=== PATIENT | female | born 1955 | race Two or more races ===

== ENCOUNTER 2018-01-25 11:36 | Outpatient (CLI) | payer OTHER ==
[~2018-01-25 11:36] MED LIST: ADALAT CC30 MG; ATORVASTATIN CA10 MG PO; BONINE25 MG PO; CEFADROXIL500 MG PO; GLIMEPIRIDE4 MG PO; HYZAAR 100-121 UDTAB; LEVO-T125 MCG PO; LOSARTAN-HCTZ1 EAC1 PO; NABUMETONE500 MG PO; NIFE60TA3 PO; PERCOCET 5-3251 EACH PO; PERCOCET 5/3251 TAB PO; TEMAZEPAM30 MG PO; XARELTO10 MG PO
== END 2018-01-25 14:49 | disposition home or self-care (01) ==
LOC: MAMO-SONO 11:36
DX: Z12.31 Encounter for screening mammogram for malignant neoplasm of breast (principal); Z87.898 Personal history of other specified conditions; N62 Hypertrophy of breast; E03.8 Other specified hypothyroidism; E04.1 Nontoxic single thyroid nodule

== ENCOUNTER 2018-04-04 07:56 | Outpatient (CLI) | payer OTHER | END 2018-04-04 08:03 | disposition home or self-care (01) | LOC: SONOGRAMA 07:56 → MAMO-SONO 08:15 | DX: K76.0 Fatty (change of) liver, not elsewhere classified (principal) ==

== ENCOUNTER 2019-01-16 10:58 | Outpatient (CLI) | payer OTHER | END 2019-01-16 11:08 | disposition home or self-care (01) | LOC: RAD 10:58 → MAMO-SONO 11:15 | DX: E04.2 Nontoxic multinodular goiter (principal); M50.33 Other cervical disc degeneration, cervicothoracic region ==

== ENCOUNTER 2019-01-25 13:35 | Outpatient (CLI) | payer OTHER | END 2019-01-25 13:37 | disposition home or self-care (01) | LOC: NUCLEAR 13:35 | DX: M81.0 Age-related osteoporosis without current pathological fracture (principal); Z13.820 Encounter for screening for osteoporosis ==

== ENCOUNTER 2019-01-31 13:10 | Outpatient (CLI) | payer OTHER | END 2019-01-31 13:22 | disposition home or self-care (01) | LOC: MAMO-SONO 13:10 | DX: Z12.31 Encounter for screening mammogram for malignant neoplasm of breast (principal); Z87.898 Personal history of other specified conditions; Z09 Encounter for follow-up examination after completed treatment for conditions other than malignant neoplasm ==

== ENCOUNTER 2019-10-24 08:04 | Outpatient (CLI) | payer OTHER | END 2019-10-24 08:06 | disposition home or self-care (01) | LOC: SONOGRAMA 08:04 → MAMO-SONO 08:15 | PROVIDERS: ATTEND Internal Medicine | DX: K76.0 Fatty (change of) liver, not elsewhere classified (principal) ==

== ENCOUNTER 2021-01-07 08:01 | Outpatient (CLI) | payer OTHER | END 2021-01-07 08:02 | disposition home or self-care (01) | LOC: MAMO-SONO 08:01 | PROVIDERS: ATTEND Obstetrics & Gynecology | DX: D25.1 Intramural leiomyoma of uterus (principal); Q61.01 Congenital single renal cyst; R10.2 Pelvic and perineal pain; N60.11 Diffuse cystic mastopathy of right breast; N60.12 Diffuse cystic mastopathy of left breast; Z80.3 Family history of malignant neoplasm of breast; Z12.31 Encounter for screening mammogram for malignant neoplasm of breast ==

== ENCOUNTER 2021-12-09 10:57 | Outpatient (CLI) | payer OTHER | END 2021-12-09 11:08 | disposition home or self-care (01) | LOC: RAD 10:57 | PROVIDERS: ATTEND Internal Medicine | DX: M50.33 Other cervical disc degeneration, cervicothoracic region (principal); M85.80 Other specified disorders of bone density and structure, unspecified site; E04.2 Nontoxic multinodular goiter ==

== ENCOUNTER 2022-09-16 12:46 | Outpatient (CLI) | payer OTHER | END 2022-09-16 13:00 | disposition home or self-care (01) | LOC: MAMO-SONO 12:46 | DX: Z12.31 Encounter for screening mammogram for malignant neoplasm of breast (principal); E04.2 Nontoxic multinodular goiter; N60.11 Diffuse cystic mastopathy of right breast; N60.12 Diffuse cystic mastopathy of left breast; Z80.3 Family history of malignant neoplasm of breast ==

== ENCOUNTER 2023-11-07 22:49 | Emergency (ER) | payer OTHER ==
[~2023-11-07] VITALS: Ht 294.6 cm; Wt 81.6 kg
[2023-11-07] MEDS ORDERED: [UNRECOGNIZED DRUG - OTHER] (23:21)
[2023-11-07] MEDS ORDERED: TOPROL XL50 M1 (23:22)
[2023-11-08] MEDS ORDERED: BISMUTH SUBSALICYLATE 524 MG/30 ML BLIST.PACK PO STA (00:54)
[2023-11-08 01:23] LABS: HEMATOCRIT 35.7 % (36.0-45.00); MEAN CELL VOLUME 85.1 fL (80.00-100.00); MEAN CORPUSCULAR HEMOGLOBIN 28.6 pg (27.00-32.0); MEAN CORPUSCULAR HGB CONC 33.6 g/dl (32.0-36.0); PLATELET COUNT 294 K/uL (150-450); RED BLOOD COUNT 4.19 M/uL (4.00-6.00); RED CELL DISTRIBUTION WIDTH 14.1 % (11.5-14.5)
[2023-11-08 01:34] LABS: CALCIUM 9.2 mg/dL (8.5-10.1); CREATININE SERUM 1.17 mg/dL (0.55-1.02); GFR 45.73; POTASSIUM 3.63 mEq/L (3.5-5.1)
[2023-11-08 03:41] LABS: URINE APPEARANCE Clear; URINE BILIRRUBIN Negative (NEGATIVE); URINE BLOOD Negative; URINE COLOR Yellow; URINE LEUKOCYTE Negative; URINE NITRATE Negative; URINE PROTEIN Negative (NEGATIVE); URINE UROBILINOGEN 0.2 E.U./dl
[2023-11-08 03:45] LABS: URINE BACTERIA 3510.2 uL (0.0-1933); URINE EPITHELIAL CELLS 27.1 uL (0.0-38.8); URINE RBC 4.8 uL (0.0-20.8); URINE WBC 20.4 uL (0.0-23.2)
[2023-11-08 03:57] LABS: URINE GLUCOSE >=1000 MG/DL (NEGATIVE)
== END 2023-11-08 04:22 | disposition home or self-care (01) ==
LOC: ER 22:50
DX: U07.1 COVID-19 (principal); R53.81 Other malaise; E11.9 Type 2 diabetes mellitus without complications; Z79.84 Long term (current) use of oral hypoglycemic drugs; I10 Essential (primary) hypertension

== ENCOUNTER 2024-01-17 13:59 | Outpatient (CLI) | payer OTHER ==
[~2024-01-17 13:59] MED LIST changes: +TOPROL XL50 M1; +[UNRECOGNIZED DRUG - OTHER]
== END 2024-01-17 14:30 | disposition home or self-care (01) ==
LOC: MAMO-SONO 13:59
PROVIDERS: ATTEND Physical Medicine & Rehabilitation Sports Medicine
DX: M65.811 Other synovitis and tenosynovitis, right shoulder (principal); M19.011 Primary osteoarthritis, right shoulder; M25.511 Pain in right shoulder; M62.838 Other muscle spasm; M54.2 Cervicalgia; M47.812 Spondylosis without myelopathy or radiculopathy, cervical region; Z12.31 Encounter for screening mammogram for malignant neoplasm of breast; Z12.11 Encounter for screening for malignant neoplasm of colon

== ENCOUNTER 2025-04-10 08:18 | Outpatient (CLI) | payer OTHER | END 2025-04-10 08:24 | disposition home or self-care (01) | LOC: MAMO-SONO 08:18 | PROVIDERS: ATTEND Internal Medicine | DX: K76.0 Fatty (change of) liver, not elsewhere classified (principal); Z12.39 Encounter for other screening for malignant neoplasm of breast; Z12.31 Encounter for screening mammogram for malignant neoplasm of breast; E04.2 Nontoxic multinodular goiter ==